=== PATIENT | female | born 2000 | race Caucasian/White ===

== ENCOUNTER 2019-10-28 00:15 | Emergency (ER) | payer OTHER ==
[~2019-10-28] VITALS: Ht 154.9 cm; Wt 46.3 kg
--- NOTE | 2019-10-28 00:15 | NUR ---
PT VISH ALS. TAKEN TO BED 6
[2019-10-28 00:20] VITALS: BP 138/97
--- NOTE | 2019-10-28 00:20 | NUR ---
PT BIBA C/O TAKING TOO MUCH ECSTACY. PT STATES SHE HAS TAKEN ECSTACY BEFORE BUT THIS WAS MORE THAN SHE'S TAKEN BEFORE. PT C/O INCREASED HEART RATE, FEELING ANXIOUS, AND TROUBLE TRACKING WITH HER EYES. PUPILS ARE DILATED, BUT EQUAL ROUND AND REACTIVE TO LIGHT. DENIES DIZZINES, HEADACHE, CHEST PAIN OR TROUBLE BREATHING. STATES SHE HAS A HX OF ADD AND TAKES ADDERALL, BUT THAT THE EFFECTS OF THE ADDERALL NORMALLY WEAR OFF BY 1900 AND THEY HAVE NOT YET. PLACED ON [employer]; TACHYCARDIC BUT VITALLY STABLE. IV PLACED. UNABLE TO DRAW BLOOD FROM IV. AOX4. NS BOLUS STARTED. MD AT BEDSIDE. WILL CONTINUE TO MONITOR.
[2019-10-28] MEDS ORDERED: NACL 0.9% 1,000 ML IV ONE (00:25)
--- NOTE | 2019-10-28 00:25 | NUR ---
PT AMBULATED TO BATHROOM; UNABLE TO OBTAIN SPECIMEN. ASKED TO LET US KNOW WHEN SHE FEELS THE URGE TO VOID.
--- NOTE | 2019-10-28 00:30 | NUR ---
[facility] [employer] CALLED; PT DOES NOT CONSENT TO INFORMATION BEING SHARED WITH THE [facility]. INFORMED PT TO CALL [phone] WHEN DISCHARGED.
--- NOTE | 2019-10-28 00:37 | NUR ---
FRIEND AT BEDSIDE
--- NOTE | 2019-10-28 01:06 | NUR ---
PT ATTEMPTING TO URINATE AGAIN.
[2019-10-28 01:35] LABS: BARBITURATE, URINE NEGATIVE ng/ml (NEG <=200); BENZODIAZEPINE, URINE NEGATIVE ng/mL (NEG <=200); CANNABINOID, URINE NEGATIVE ng/mL (NEG <=50); COCAINE, URINE NEGATIVE ng/mL (NEG <=300); OPIATE, URINE NEGATIVE ng/mL (NEG <=2000); PHENCYCLIDINE SCREEN,URINE NEGATIVE ng/mL (NEG <=25)
--- NOTE | 2019-10-28 01:59 | NUR ---
PT AOX4; REPORTS FEELING BETTER. VISION IMPROVED AND DECREASE IN ANXIOUSNESS. PUPILS LESS DILATED. RECONNECTED TO IVF. VSS. WILL CONTINUE TO MONITOR.
[2019-10-28 02:26] VITALS: BP 126/87
--- NOTE | 2019-10-28 02:27 | NUR ---
Patient discharged with v/s stable. Written and verbal after care instructions given and explained. Patient verbalized understanding. Ambulatory with steady gait. All questions addressed prior to discharge. Advised to follow up with PMD. PT ACCOMPANIED BY FRIEND AND HAS SAFE RIDE HOME.
== END 2019-10-28 02:27 | disposition home or self-care (01) ==
LOC: MED 00:15
DX: R42 Dizziness and giddiness (principal); T43.625A Adverse effect of amphetamines, initial encounter; Y92.89 Other specified places as the place of occurrence of the external cause
CPT/HCPCS: 80305; 81025; 99283; J7030; 81002